=== PATIENT | male | born 1955 | race Caucasian/White ===

== ENCOUNTER 2019-08-18 08:03 | Observation (INO) ==
[2019-08-18] MEDS ORDERED: Isovue-370 500 ML BOTTLE IVP ONE (08:10)
[2019-08-18] MEDS ORDERED: Ondansetron 4 MG/2 ML VIAL IVP ONE (08:40)
[2019-08-18 08:52] LABS: Basophils % 0.2 %; Eosinophils # 0.1 K/mcL (0.0-0.6); Hematocrit 44.9 % (37.5-50.1); Hemoglobin 14.6 g/dL (12.9-16.9); Immature Granulocytes % 0.4 % (0-4); Lymphocytes # 0.9 K/mcL (0.6-4.6); Lymphocytes % 11.3 %; Mean Corpuscular HGB Conc 32.5 g/dL (31.6-35.5); Mean Corpuscular Hemoglobin 29.9 pg (28.0-33.3); Mean Platelet Volume 10.5 fL (9.4-12.4); Monocytes # 0.6 K/mcL (0.0-1.3); Monocytes % 6.9 %; Neutrophils # 6.6 K/mcL (1.6-8.9); Platelet Count 211 K/mcL (140-400); Red Blood Count 4.88 M/mcL (4.19-5.50); Red Cell Distribution Width 13.4 % (11.5-14.5); Segmented Neutrophils % 80.2 %; White Blood Count 8.2 K/mcL (4.3-11.1)
[2019-08-18 09:15] LABS: BUN/Creatinine Ratio 23 (6-26); Blood Urea Nitrogen 27 mg/dL (8-23); Calcium 9.7 mg/dL (8.6-10.3); Carbon Dioxide 24 mEq/L (23-29); Chloride 106 mEq/L (98-107); Glucose 124 mg/dL (70-105); Osmolality,Calculated 293 (280-300); Potassium 4.7 mEq/L (3.5-5.1); Sodium 138 mEq/L (136-145); Troponin I < 0.03 ng/mL (< 0.04); eGFR For African Americans > 60 (> 60); eGFR For Non-African Americans > 60 (> 60)
[2019-08-18 09:26] LABS: Thyroid Stimulating Hormone 7.146 mcIU/mL (0.340-5.600)
[2019-08-18] MEDS ORDERED: 0.9 % Sodium Chloride 1,000 ML IVC ONE (10:50)
[2019-08-18] MEDS ORDERED: Naloxone 0.4 MG/ML INJ IVP PRN (11:05)
[2019-08-18] MEDS ORDERED: Ondansetron 4 MG/2 ML VIAL IVP PRN (11:05)
[2019-08-18 11:31] LABS: Triiodothyronine (T3) Free 3.93 pg/mL (2.50-3.90)
[2019-08-18 14:43] LABS: Bilirubin,Urine Negative (Negative); Blood,Urine Negative (Negative); Clarity,Urine Clear (Clear); Color,Urine Yellow (Yellow); Glucose,Urine (UA) Normal (Normal); Ketones,Urine 40 mg/dL (Negative); Leukocyte Esterase,Urine Negative (Negative); Nitrite,Urine Negative (Negative); PH,Urine 6.5 pH Units (5.0-8.0); Protein,Urine Trace mg/dL (Neg-Trace); Specific Gravity,Urine > 1.030 (1.010-1.025); Urobilinogen,Urine Normal (Normal)
[2019-08-18] MEDS ORDERED: Acetaminophen/Aspirin/Caffeine TABLET PO PRN ×2 (14:44→17:14)
[2019-08-18] MEDS ORDERED: Perflutren Lipid Microsphere 1.3 ML in 0.9 % Sodium Chloride 8.7 ML IVP ONE (15:29)
[2019-08-18] MEDS: 0.9 % Sodium Chloride 1,000 ML IVC SCH (15:29)
[2019-08-18] MEDS ORDERED: Melatonin 3 MG TABLET PO PRN (23:49)
[2019-08-19] MEDS: 0.9 % Sodium Chloride 1,000 ML IVC SCH (04:21)
[2019-08-19 05:39] LABS: Basophils % 0.4 %; Eosinophils # 0.1 K/mcL (0.0-0.6); Eosinophils % 1.3 %; Hematocrit 37.1 % (37.5-50.1); Immature Granulocytes % 0.2 % (0-4); Lymphocytes # 0.9 K/mcL (0.6-4.6); Lymphocytes % 17.6 %; Mean Corpuscular HGB Conc 33.2 g/dL (31.6-35.5); Mean Corpuscular Hemoglobin 30.4 pg (28.0-33.3); Mean Corpuscular Volume 91.6 fL (83.0-100.0); Mean Platelet Volume 10.8 fL (9.4-12.4); Monocytes # 0.5 K/mcL (0.0-1.3); Monocytes % 9.9 %; Neutrophils # 3.7 K/mcL (1.6-8.9); Platelet Count 178 K/mcL (140-400); Red Blood Count 4.05 M/mcL (4.19-5.50); Red Cell Distribution Width 13.6 % (11.5-14.5); Segmented Neutrophils % 70.6 %; White Blood Count 5.3 K/mcL (4.3-11.1)
[2019-08-19 05:47] LABS: Hemoglobin 12.3 g/dL (12.9-16.9)
[2019-08-19 05:55] LABS: BUN/Creatinine Ratio 17 (6-26); Blood Urea Nitrogen 15 mg/dL (8-23); Calcium 8.8 mg/dL (8.6-10.3); Carbon Dioxide 26 mEq/L (23-29); Chloride 108 mEq/L (98-107); Glucose 95 mg/dL (70-105); Osmolality,Calculated 291 (280-300); Sodium 140 mEq/L (136-145); eGFR For African Americans > 60 (> 60); eGFR For Non-African Americans > 60 (> 60)
[2019-08-19 12:21] VITALS: BP 118/71
== END 2019-08-19 16:14 | disposition home or self-care (01) ==
LOC: EMEROOARM 08:03 → 3BNU 08:03 → SUATTDRO 11:06 → 3BNU 12:01
PROVIDERS: ADMIT Internal Medicine; ATTEND Internal Medicine

== ENCOUNTER 2019-10-27 07:51 | Observation (INO) ==
[2019-10-27] MEDS ORDERED: Ondansetron 4 MG/2 ML VIAL IVP ONE (08:20)
[2019-10-27] MEDS ORDERED: 0.9 % Sodium Chloride 1,000 ML IVC STA (08:24)
[2019-10-27 08:48] LABS: Basophils % 0.5 %; Eosinophils # 0.1 K/mcL (0.0-0.6); Eosinophils % 1.8 %; Hematocrit 36.9 % (37.5-50.1); Immature Granulocytes % 0.2 % (0-4); Lymphocytes # 1.3 K/mcL (0.6-4.6); Lymphocytes % 29.1 %; Mean Corpuscular HGB Conc 32.5 g/dL (31.6-35.5); Mean Corpuscular Hemoglobin 29.8 pg (28.0-33.3); Mean Corpuscular Volume 91.6 fL (83.0-100.0); Mean Platelet Volume 10.8 fL (9.4-12.4); Monocytes # 0.7 K/mcL (0.0-1.3); Monocytes % 15.8 %; Neutrophils # 2.3 K/mcL (1.6-8.9); Platelet Count 208 K/mcL (140-400); Red Blood Count 4.03 M/mcL (4.19-5.50); Red Cell Distribution Width 13.3 % (11.5-14.5); Segmented Neutrophils % 52.6 %; White Blood Count 4.4 K/mcL (4.3-11.1)
[2019-10-27 09:04] LABS: Alanine Aminotransferase 11 Units/L (7-52); Albumin 3.9 g/dL (3.5-5.7); Albumin/Globulin Ratio 1.7 (1.1-2.2); Alkaline Phosphatase 46 Units/L (34-104); Aspartate Amino Transferase 15 Units/L (13-39); BUN/Creatinine Ratio 30 (6-26); Bilirubin,Direct 0.1 mg/dL (0.0-0.2); Bilirubin,Indirect 0.5 mg/dL (0.0-1.0); Bilirubin,Total 0.6 mg/dL (0.3-1.0); Blood Urea Nitrogen 28 mg/dL (8-23); Calcium 9.2 mg/dL (8.6-10.3); Carbon Dioxide 20 mEq/L (23-29); Chloride 109 mEq/L (98-107); Globulin 2.3 g/dL (2.4-3.5); Glucose 120 mg/dL (70-105); Lipase 37 Units/L (11-82); Osmolality,Calculated 297 (280-300); Potassium 3.3 mEq/L (3.5-5.1); Sodium 140 mEq/L (136-145); Total Protein 6.2 g/dL (6.4-8.9); Troponin I < 0.03 ng/mL (< 0.04); eGFR For African Americans > 60 (> 60); eGFR For Non-African Americans > 60 (> 60)
[2019-10-27 09:17] LABS: Thyroid Stimulating Hormone 6.725 mcIU/mL (0.340-5.600)
[2019-10-27] MEDS ORDERED: Ondansetron 4 MG/2 ML VIAL IVP PRN (10:09)
[2019-10-27] MEDS ORDERED: Naloxone 0.4 MG/ML INJ IVP PRN (10:09)
[2019-10-27] MEDS ORDERED: Acetaminophen 325 MG TABLET PO PRN (10:09)
[2019-10-27] MEDS ORDERED: 0.9 % Sodium Chloride w KCl 40 MEQ/1,000 ML MLS IVC SCH (10:15)
[2019-10-27] MEDS: Ampicillin/Sulbactam 1,500 MG in 0.9 % Sodium Chloride Mini Bag 100 ML IVPB SCH ×3 (12:21→23:50)
[2019-10-27] MEDS: *HR* Heparin 5,000 UNIT/ML VIAL SQ SCH ×2 (12:23→20:03)
[2019-10-27 12:44] LABS: Triiodothyronine (T3) Free 2.98 pg/mL (2.50-3.90)
[2019-10-27] MEDS ORDERED: Ketorolac 15 MG/ML VIAL IVP ONE (21:10)
[2019-10-27] MEDS: *HR* Promethazine 25 MG/ML VIAL IV ONE ×2 (21:56→23:48)
[2019-10-28] MEDS: Ampicillin/Sulbactam 1,500 MG in 0.9 % Sodium Chloride Mini Bag 100 ML IVPB SCH ×2 (05:33→11:23)
[2019-10-28] MEDS: *HR* Heparin 5,000 UNIT/ML VIAL SQ SCH (05:33)
[2019-10-28 06:26] LABS: Basophils % 0.3 %; Eosinophils # 0.1 K/mcL (0.0-0.6); Eosinophils % 1.2 %; Hematocrit 34.1 % (37.5-50.1); Hemoglobin 11.2 g/dL (12.9-16.9); Immature Granulocytes % 0.2 % (0-4); Lymphocytes # 1.1 K/mcL (0.6-4.6); Lymphocytes % 17.4 %; Mean Corpuscular HGB Conc 32.8 g/dL (31.6-35.5); Mean Corpuscular Hemoglobin 30.6 pg (28.0-33.3); Mean Corpuscular Volume 93.2 fL (83.0-100.0); Mean Platelet Volume 10.9 fL (9.4-12.4); Monocytes # 0.6 K/mcL (0.0-1.3); Monocytes % 9.8 %; Neutrophils # 4.3 K/mcL (1.6-8.9); Platelet Count 178 K/mcL (140-400); Red Blood Count 3.66 M/mcL (4.19-5.50); Red Cell Distribution Width 13.7 % (11.5-14.5); Segmented Neutrophils % 71.1 %; White Blood Count 6.1 K/mcL (4.3-11.1)
[2019-10-28 06:28] LABS: INR 1.1; Prothrombin Time 12.3 Seconds (9.4-12.1)
[2019-10-28 06:30] LABS: Activated Partial Thrombo Time 30.7 Seconds (26.0-36.0)
[2019-10-28 06:56] LABS: BUN/Creatinine Ratio 22 (6-26); Blood Urea Nitrogen 19 mg/dL (8-23); Calcium 8.7 mg/dL (8.6-10.3); Carbon Dioxide 25 mEq/L (23-29); Chloride 110 mEq/L (98-107); Glucose 96 mg/dL (70-105); Magnesium 1.8 mg/dL (1.6-2.6); Osmolality,Calculated 294 (280-300); Phosphorous 3.4 mg/dL (2.7-4.5); Sodium 141 mEq/L (136-145); eGFR For African Americans > 60 (> 60); eGFR For Non-African Americans > 60 (> 60)
[2019-10-28 07:49] VITALS: BP 117/70
== END 2019-10-28 12:24 | disposition home or self-care (01) ==
LOC: EMEROOARM 07:51 → 3BNU 07:51 → SUATTDRO 10:18 → 3BNU 10:54
PROVIDERS: ADMIT Internal Medicine; ATTEND Internal Medicine

== ENCOUNTER 2022-03-13 14:59 | Observation (INO) ==
[2022-03-13 15:47] LABS: Basophils % 0.2 %; Eosinophils % 0.2 %; Hematocrit 24.8 % (37.5-50.1); Hemoglobin 8.3 g/dL (12.9-16.9); Immature Granulocytes % 0.4 % (0-4); Lymphocytes # 0.8 K/mcL (0.6-4.6); Lymphocytes % 18.1 %; Mean Corpuscular HGB Conc 33.5 g/dL (31.6-35.5); Mean Corpuscular Hemoglobin 31.4 pg (28.0-33.3); Mean Corpuscular Volume 93.9 fL (83.0-100.0); Mean Platelet Volume 11.1 fL (9.4-12.4); Monocytes # 0.4 K/mcL (0.0-1.3); Monocytes % 8.6 %; Neutrophils # 3.3 K/mcL (1.6-8.9); Nucleated Red Blood Cells 0.4 /100 WBC (0); Platelet Count 166 K/mcL (140-400); Red Blood Count 2.64 M/mcL (4.19-5.50); Segmented Neutrophils % 72.5 %; White Blood Count 4.5 K/mcL (4.3-11.1)
[2022-03-13 16:09] LABS: BUN/Creatinine Ratio 26 (6-26); Blood Urea Nitrogen 20 mg/dL (8-23); Carbon Dioxide 27 mEq/L (23-29); Chloride 104 mEq/L (98-107); Glucose 107 mg/dL (70-105); Osmolality,Calculated 287 (280-300); Potassium 3.8 mEq/L (3.5-5.1); Sodium 137 mEq/L (136-145); Troponin I < 0.03 ng/mL (< 0.04)
[2022-03-13] MEDS ORDERED: Iopamidol - 370 500 ML MLS IVP ONE (20:37)
[2022-03-13] MEDS ORDERED: Pantoprazole 40 MG VIAL IVP ONE (20:37)
[2022-03-13 22:19] LABS: INR 1.1; Prothrombin Time 12.4 Seconds (9.4-12.1)
[2022-03-13 22:23] LABS: Albumin 3.8 g/dL (3.5-5.7); Albumin/Globulin Ratio 1.9 (1.1-2.2); Bilirubin,Direct 0.1 mg/dL (0.0-0.2); Bilirubin,Indirect 0.4 mg/dL (0.0-1.0); Bilirubin,Total 0.5 mg/dL (0.3-1.0); Total Protein 5.8 g/dL (6.4-8.9)
[2022-03-13] MEDS ORDERED: Ondansetron 4 MG/2 ML VIAL IVP PRN (23:51)
[2022-03-13] MEDS ORDERED: Naloxone 0.4 MG/ML INJ IVP PRN (23:51)
[2022-03-14 05:19] LABS: Basophils % 0.3 %; Eosinophils % 0.8 %; Hemoglobin 7.5 g/dL (12.9-16.9); Immature Granulocytes % 0.3 % (0-4); Lymphocytes # 0.8 K/mcL (0.6-4.6); Lymphocytes % 21.2 %; Mean Corpuscular HGB Conc 32.6 g/dL (31.6-35.5); Mean Corpuscular Hemoglobin 30.5 pg (28.0-33.3); Mean Corpuscular Volume 93.5 fL (83.0-100.0); Mean Platelet Volume 11.6 fL (9.4-12.4); Monocytes # 0.5 K/mcL (0.0-1.3); Monocytes % 11.7 %; Neutrophils # 2.5 K/mcL (1.6-8.9); Nucleated Red Blood Cells 0.5 /100 WBC (0); Platelet Count 165 K/mcL (140-400); Red Blood Count 2.46 M/mcL (4.19-5.50); Red Cell Distribution Width 15.2 % (11.5-14.5); Segmented Neutrophils % 65.7 %; White Blood Count 3.9 K/mcL (4.3-11.1)
[2022-03-14 05:40] LABS: BUN/Creatinine Ratio 18 (6-26); Blood Urea Nitrogen 14 mg/dL (8-23); Calcium 8.7 mg/dL (8.6-10.3); Carbon Dioxide 27 mEq/L (23-29); Chloride 107 mEq/L (98-107); Glucose 105 mg/dL (70-105); Magnesium 1.8 mg/dL (1.6-2.6); Osmolality,Calculated 287 (280-300); Potassium 3.5 mEq/L (3.5-5.1); Sodium 138 mEq/L (136-145)
[2022-03-14] MEDS ORDERED: Pantoprazole 40 MG VIAL IVP SCH (06:00)
[2022-03-14] MEDS ORDERED: Iopamidol - 370 500 ML MLS IVP ONE (07:06)
[2022-03-14] MEDS: Acetaminophen 325 MG TABLET PO PRN (10:52)
[2022-03-14] MEDS ORDERED: *HR* Dextrose 50 % in Water (Syg) 50 ML SYRINGE IVP PRN (12:04)
[2022-03-14] MEDS ORDERED: Dextrose Gel 15 GM/37.5 ML TUBE PO PRN ×2 (12:04)
[2022-03-14] MEDS ORDERED: D5% in Water 1,000 ML IVC PRN (12:04)
[2022-03-14 14:02] LABS: Hematocrit 23.3 % (37.5-50.1); Hemoglobin 7.7 g/dL (12.9-16.9)
[2022-03-14] MEDS ORDERED: Lidocaine -MPF 2% 5 ML VIAL ONE (15:08)
[2022-03-14] MEDS ORDERED: *HR* Propofol 200 MG/20 ML VIAL IVP ONE ×3 (15:10→15:55)
[2022-03-14] MEDS ORDERED: *HR* EPINEPHrine 1 MG/10 ML SYRINGE INTRATRACH ONE (16:05)
[2022-03-14] MEDS: Pantoprazole 40 MG in 0.9 % Sodium Chloride Mini Bag 100 ML IVC SCH ×2 (17:09→22:07)
[2022-03-14] MEDS: Insulin LISPRO 300 UNITS/3 ML VIAL SUBQ SCH (17:23)
[2022-03-15] MEDS: Insulin LISPRO 300 UNITS/3 ML VIAL SUBQ SCH ×4 (00:10→18:24)
[2022-03-15] MEDS: Pantoprazole 40 MG in 0.9 % Sodium Chloride Mini Bag 100 ML IVC SCH ×5 (02:45→23:12)
[2022-03-15] MEDS ORDERED: Ketorolac 30 MG/ML VIAL IVP ONE (03:21)
[2022-03-15 05:53] LABS: Basophils % 0.4 %; Eosinophils % 0.6 %; Hematocrit 23.3 % (37.5-50.1); Hemoglobin 7.7 g/dL (12.9-16.9); Immature Granulocytes % 0.4 % (0-4); Lymphocytes # 0.8 K/mcL (0.6-4.6); Lymphocytes % 15.2 %; Mean Corpuscular Hemoglobin 30.8 pg (28.0-33.3); Mean Corpuscular Volume 93.2 fL (83.0-100.0); Mean Platelet Volume 10.8 fL (9.4-12.4); Monocytes # 0.5 K/mcL (0.0-1.3); Neutrophils # 3.6 K/mcL (1.6-8.9); Platelet Count 177 K/mcL (140-400); Red Cell Distribution Width 15.4 % (11.5-14.5); Segmented Neutrophils % 72.4 %; White Blood Count 4.9 K/mcL (4.3-11.1)
[2022-03-15 06:23] LABS: BUN/Creatinine Ratio 16 (6-26); Blood Urea Nitrogen 14 mg/dL (8-23); Calcium 8.7 mg/dL (8.6-10.3); Carbon Dioxide 26 mEq/L (23-29); Chloride 106 mEq/L (98-107); Glucose 95 mg/dL (70-105); Magnesium 1.8 mg/dL (1.6-2.6); Osmolality,Calculated 288 (280-300); Potassium 3.6 mEq/L (3.5-5.1); Sodium 139 mEq/L (136-145)
[2022-03-15 06:26] LABS: Thyroid Stimulating Hormone 3.891 mcIU/mL (0.340-5.600)
[2022-03-15] MEDS ORDERED: 0.9 % Sodium Chloride 250 ML IVC SCH (07:45)
[2022-03-15] MEDS: Acetaminophen 325 MG TABLET PO PRN (12:59)
[2022-03-15 17:05] LABS: Hematocrit 25.2 % (37.5-50.1); Hemoglobin 8.7 g/dL (12.9-16.9)
[2022-03-16] MEDS: Insulin LISPRO 300 UNITS/3 ML VIAL SUBQ SCH ×3 (01:12→11:16)
[2022-03-16] MEDS: Acetaminophen 325 MG TABLET PO PRN (03:10)
[2022-03-16] MEDS: Pantoprazole 40 MG in 0.9 % Sodium Chloride Mini Bag 100 ML IVC SCH ×2 (04:11→08:25)
[2022-03-16 04:50] LABS: Basophils % 0.2 %; Eosinophils # 0.1 K/mcL (0.0-0.6); Eosinophils % 1.3 %; Hematocrit 25.2 % (37.5-50.1); Hemoglobin 8.5 g/dL (12.9-16.9); Immature Granulocytes % 0.2 % (0-4); Lymphocytes # 0.8 K/mcL (0.6-4.6); Lymphocytes % 17.2 %; Mean Corpuscular HGB Conc 33.7 g/dL (31.6-35.5); Mean Platelet Volume 11.5 fL (9.4-12.4); Monocytes # 0.6 K/mcL (0.0-1.3); Monocytes % 12.5 %; Neutrophils # 3.2 K/mcL (1.6-8.9); Platelet Count 187 K/mcL (140-400); Red Blood Count 2.74 M/mcL (4.19-5.50); Red Cell Distribution Width 14.7 % (11.5-14.5); Segmented Neutrophils % 68.6 %; White Blood Count 4.7 K/mcL (4.3-11.1)
[2022-03-16 05:11] LABS: BUN/Creatinine Ratio 17 (6-26); Blood Urea Nitrogen 14 mg/dL (8-23); Calcium 8.6 mg/dL (8.6-10.3); Carbon Dioxide 25 mEq/L (23-29); Chloride 107 mEq/L (98-107); Glucose 107 mg/dL (70-105); Magnesium 1.8 mg/dL (1.6-2.6); Osmolality,Calculated 289 (280-300); Potassium 3.8 mEq/L (3.5-5.1); Sodium 139 mEq/L (136-145)
[2022-03-16 07:38] VITALS: PULSE 59; O2SAT 97
[2022-03-16 11:03] VITALS: BP 98/63; TEMP 97.6
== END 2022-03-16 13:52 | disposition home or self-care (01) ==
LOC: EMEROOARM 14:59 → 3BNU 14:59 → 3ANU 14:59 → SUATTDRO 03-14 13:08 → 3BNU 03-14 14:00
PROVIDERS: ADMIT Internal Medicine; ATTEND Internal Medicine